=== PATIENT | male | born 1950 | race Caucasian/White ===

== ENCOUNTER → 2017-02-23 20:44 | Outpatient (CLI) | payer MEDICARE ==
[2017-02-23 21:04] LABS: BASOPHILS 0.4 % (0-2); EOSINOPHILS 4.2 % (0-7); HEMATOCRIT 46.4 % (42.0-54.0); HEMOGLOBIN 15.7 g/dL (13.5-17.5); IMMATURE GRANULOCYTES 0.2 % (0-5); MCH 31.5 pg (26.0-34.0); MCHC 33.8 g/dL (31.0-37.0); MCV 93.2 fL (80.0-100.0); MEAN PLATELET VOLUME 11.4 fL (7.4-10.4); MONOCYTES 12.6 % (2-11); NEUTROPHILS 60.6 % (40-80); RBC 4.98 10x6/uL (4.20-6.10); RDW 12.8 % (11.5-14.5); WBC 5.5 10x3/uL (4.8-10.8)
[2017-02-23 21:06] LABS: PLATELET COUNT 161 10x3/uL (130-400)
[2017-02-23 21:19] LABS: HEMOGLOBIN A1C 5.7 % (4.8-6.0)
[2017-02-23 21:23] LABS: ALBUMIN 4.2 g/dL (3.4-5.0); ALKALINE PHOSPHATASE 45 U/L (46-116); ALT (SGPT) 30 U/L (10-68); BILIRUBIN - TOTAL 0.51 mg/dL (0.2-1.3); CALC OSMOLALITY 288 mosm/kg (275-300); CALCIUM 9.6 mg/dL (8.5-10.1); CARBON DIOXIDE 25.2 mmol/L (21.0-32.0); CHLORIDE - SERUM 104 mmol/L (98-107); CHOL - HDL RATIO 8.2 ratio (2.3-4.9); CHOLESTEROL, TOTAL 288 mg/dL (0-200); CREATININE - SERUM 1.3 mg/dL (0.6-1.3); GLUCOSE 134 mg/dL (74-106); HDL CHOLESTEROL 35 mg/dL (32-96); POTASSIUM - SERUM 4.3 mmol/L (3.5-5.1); PROTEIN - SERUM 7.4 g/dL (6.4-8.2); SODIUM 139 mmol/L (136-145); T4 THYROXINE 4.8 ug/dL (4.7-13.3); THYROID STIMULATING HORMONE 1.41 uIU/mL (0.36-3.74); TRIGLYCERIDE 469 mg/dL (30-200); UREA NITROGEN 37 mg/dL (7-18); eGFR NON AFRICAN AMERICAN 59 mL/min (90-120)
== END | disposition home or self-care (01) ==
LOC: D.LABREF 20:44
PROVIDERS: Internal Medicine Interventional Cardiology
DX: E78.5 Hyperlipidemia, unspecified (principal); E11.9 Type 2 diabetes mellitus without complications; I10 Essential (primary) hypertension

== ENCOUNTER → 2017-08-14 16:45 | Outpatient (CLI) | payer MEDICARE ==
[2017-08-14 17:43] LABS: CHOL - HDL RATIO 4.5 ratio (2.3-4.9)
== END | disposition home or self-care (01) ==
LOC: D.LABREF 16:45
PROVIDERS: Internal Medicine Interventional Cardiology
DX: E78.5 Hyperlipidemia, unspecified (principal)

== ENCOUNTER 2018-02-15 11:32 | Emergency (ER) | payer MEDICARE ==
[~2018-02-15] VITALS: Ht 180.3 cm; Wt 94.5 kg
[2018-02-15 11:37] VITALS: Ht 180.3 cm; Wt 94.5 kg
[2018-02-15] MEDS ORDERED: HYDROCHLOROTHIA25 MG PO (11:38)
[2018-02-15] MEDS ORDERED: PRINIVIL20 MG PO (11:38)
[2018-02-15] MEDS ORDERED: NAPROSYN500 MG PO (11:38)
[2018-02-15 14:03] VITALS: BP 126/74
== END 2018-02-15 14:05 | disposition home or self-care (01) ==
LOC: D.ER 11:32
DX: S61.210A Laceration without foreign body of right index finger without damage to nail, initial encounter (principal); X58.XXXA Exposure to other specified factors, initial encounter; Y93.89 Activity, other specified; Y92.89 Other specified places as the place of occurrence of the external cause

== ENCOUNTER → 2018-02-25 21:21 | Outpatient (CLI) | payer MEDICARE ==
[2018-02-15 11:37] VITALS: BMI 29.0
[~2018-02-25 21:21] MED LIST: HYDROCHLOROTHIA25 MG PO; NAPROSYN500 MG PO; PRINIVIL20 MG PO
== END | disposition home or self-care (01) ==
LOC: D.LAB 21:21
DX: S61.201A Unspecified open wound of left index finger without damage to nail, initial encounter (principal); X58.XXXA Exposure to other specified factors, initial encounter

== ENCOUNTER → 2018-03-29 12:34 | Outpatient (CLI) | payer MEDICARE ==
[2018-02-15 11:37] VITALS: BMI 29.0
[2018-03-29 13:28] LABS: BASOPHILS 0.7 % (0-2); EOSINOPHILS 4.2 % (0-7); HEMOGLOBIN 13.8 g/dL (13.5-17.5); IMMATURE GRANULOCYTES 0.2 % (0-5); LYMPHOCYTES 19.8 % (15-50); MCHC 34.5 g/dL (31.0-37.0); MCV 89.9 fL (80.0-100.0); MEAN PLATELET VOLUME 10.7 fL (7.4-10.4); MONOCYTES 11.6 % (2-11); NEUTROPHILS 63.5 % (40-80); RBC 4.45 10x6/uL (4.20-6.10); RDW 12.6 % (11.5-14.5)
[2018-03-29 13:30] LABS: PLATELET COUNT 206 10x3/uL (130-400)
[2018-03-29 13:45] LABS: ANION GAP 14.1 mmol/L (8-16); CALCIUM 9.5 mg/dL (8.5-10.1); CARBON DIOXIDE 26.1 mmol/L (21.0-32.0); CREATININE - SERUM 1.2 mg/dL (0.6-1.3); POTASSIUM - SERUM 4.2 mmol/L (3.5-5.1)
[2018-03-29 13:48] LABS: SCREENING PSA (YEARLY) 0.87 ng/mL (0.00-4.00)
== END | disposition home or self-care (01) ==
LOC: D.LABREF 12:34
PROVIDERS: Internal Medicine Interventional Cardiology
DX: I25.10 Atherosclerotic heart disease of native coronary artery without angina pectoris (principal); E78.5 Hyperlipidemia, unspecified; I10 Essential (primary) hypertension